=== PATIENT | female | born 1980 | race Two or more races ===

== ENCOUNTER 2018-05-18 09:23 | Emergency (ER) | payer OTHER ==
[~2018-05-18] VITALS: Ht 160 cm; Wt 68.0 kg
== END 2018-05-18 15:59 | disposition home or self-care (01) ==
LOC: ER 09:23
DX: J06.9 Acute upper respiratory infection, unspecified (principal)

== ENCOUNTER → 2019-03-19 13:04 | Outpatient (CLI) | payer OTHER | END | disposition home or self-care (01) | LOC: LAB 13:04 | DX: D50.8 Other iron deficiency anemias (principal); I10 Essential (primary) hypertension; J45.998 Other asthma; I73.89 Other specified peripheral vascular diseases; C73 Malignant neoplasm of thyroid gland; D51.8 Other vitamin B12 deficiency anemias; D68.8 Other specified coagulation defects; E03.8 Other specified hypothyroidism; E06.3 Autoimmune thyroiditis; D51.1 Vitamin B12 deficiency anemia due to selective vitamin B12 malabsorption with proteinuria; D51.0 Vitamin B12 deficiency anemia due to intrinsic factor deficiency; E55.9 Vitamin D deficiency, unspecified; K90.89 Other intestinal malabsorption ==

== ENCOUNTER 2019-03-30 12:34 | Emergency (ER) | payer OTHER ==
[~2019-03-30] VITALS: Ht 160 cm; Wt 71.7 kg
== END 2019-03-30 16:03 | disposition home or self-care (01) ==
LOC: ER 12:34
DX: H66.92 Otitis media, unspecified, left ear (principal)

== ENCOUNTER 2019-04-16 12:15 | Outpatient (CLI) | payer OTHER | END 2019-04-16 12:27 | disposition home or self-care (01) | LOC: SONOGRAMA 12:15 | DX: N60.11 Diffuse cystic mastopathy of right breast (principal); N60.12 Diffuse cystic mastopathy of left breast; N63.13 Unspecified lump in the right breast, lower outer quadrant ==

== ENCOUNTER 2019-04-18 08:26 | Day surgery (SDC) | payer OTHER ==
[2019-04-18] MEDS ORDERED: PERCOCET 5-3251 EACH PO ×2 (14:37→14:38)
== END 2019-04-18 17:45 | disposition home or self-care (01) ==
LOC: CIR.AMB 08:26
DX: E04.1 Nontoxic single thyroid nodule (principal)

== ENCOUNTER 2019-05-23 21:25 | Emergency (ER) | payer OTHER ==
[~2019-05-23] VITALS: Ht 160 cm; Wt 81.6 kg
[~2019-05-23 21:25] MED LIST: PERCOCET 5-3251 EACH PO
== END 2019-05-23 23:58 | disposition home or self-care (01) ==
LOC: ER 21:25
DX: R07.89 Other chest pain (principal); I10 Essential (primary) hypertension; R51 Headache; F06.4 Anxiety disorder due to known physiological condition

== ENCOUNTER 2024-04-07 18:47 | Emergency (ER) | payer OTHER ==
[~2024-04-07] VITALS: Ht 160 cm; Wt 78.0 kg
[2024-04-07 19:09] VITALS: BP 126/79; O2SAT 100
[2024-04-07] MEDS ORDERED: SYNTHROID100 MCG PO (19:09)
[2024-04-07] MEDS ORDERED: BENZONATATE 100 MG CAPSULE PO ONE (21:00)
[2024-04-07] MEDS ORDERED: METHYLPREDNISOLONE SOD SUCC 125 MG VIAL IV ONE (21:00)
[2024-04-07] MEDS ORDERED: IPRATROPIUM/ALBUTEROL SULFATE 3 ML AMPUL.NEB IH SCH (21:00)
[2024-04-07] MEDS ORDERED: IPRATROPIUM/ALBUTEROL SULFATE 3 ML AMPUL.NEB IH ONE (21:10)
[2024-04-07] MEDS ORDERED: METHYLPREDNISOLONE SOD SUCC 125 MG VIAL ONE (21:22)
[2024-04-07 22:29] LABS: HEMATOCRIT 39.3 % (36.0-45.00); HEMOGLOBIN 13.3 g/dL (12.0-15.00); MEAN CELL VOLUME 85.7 fL (80.00-100.00); MEAN CORPUSCULAR HEMOGLOBIN 29.1 pg (27.00-32.0); MEAN CORPUSCULAR HGB CONC 33.9 g/dl (32.0-36.0); PLATELET COUNT 267 K/uL (150-450); RED BLOOD COUNT 4.58 M/uL (4.00-6.00); RED CELL DISTRIBUTION WIDTH 15.4 % (11.5-14.5)
[2024-04-07] MEDS ORDERED: XOPENEX CO1.25 MG/0. IH (23:35)
[2024-04-07] MEDS ORDERED: GILTUSS COUGH-118 M1 PO (23:35)
[2024-04-07] MEDS ORDERED: BUDESONIDE0.5 MG/2 M IH (23:35)
[2024-04-07] MEDS ORDERED: BENZONATATE200 M1 PO (23:41)
== END 2024-04-08 00:35 | disposition home or self-care (01) ==
LOC: ER 18:50
PROVIDERS: Preventive Medicine Public Health & General Preventive Medicine
DX: J45.909 Unspecified asthma, uncomplicated (principal); E03.9 Hypothyroidism, unspecified; Z20.822 Contact with and (suspected) exposure to COVID-19